=== PATIENT | female | born 1950 | race American Indian/Alaskan Native ===

== ENCOUNTER 2019-06-14 17:19 | Observation (INO) | payer MEDICARE ==
--- NOTE | 2019-06-14 17:24 | Emergency Department Report ---
Blank Doc - Documentation Documentation: 69-year-old female that presents with dizziness. This initial assessment/diagnostic orders/clinical plan/treatment(s) is/are subject to change based on patient's health status, clinical progression and re- assessment by fellow clinical providers in the ED. Further treatment and workup at subsequent clinical providers discretion. Patient/guardians urged not to elope from the ED as their condition may be serious if not clinically assessed and managed. Initial orders include: 1- Patient sent to MAIN ED for further evaluation and treatment 2- labs 3- EKG 4- CXR 5- O2 ordered
[2019-06-14 17:57] LABS: Basophils % (Auto) 0.3 % (0.0-1.8); Eosinophils % (Auto) 0.4 % (0.0-4.3); Hematocrit 38.7 % (30.3-42.9); Hemoglobin 12.5 gm/dl (10.1-14.3); Lymphocytes # (Auto) 1.4 K/mm3 (1.2-5.4); Lymphocytes % (Auto) 17.9 % (13.4-35.0); Mean Corpuscular HGB Conc 32 % (30-34); Mean Corpuscular Volume 82 fl (79-97); Monocytes # (Auto) 0.6 K/mm3 (0.0-0.8); Monocytes % (Auto) 7.6 % (0.0-7.3); Platelet Count 238 K/mm3 (140-440); Red Blood Count 4.73 M/mm3 (3.65-5.03); Red Cell Distribution Width 16.6 % (13.2-15.2)
--- NOTE | 2019-06-14 18:01 | XRay Report ---
CHEST 1 VIEW INDICATION / CLINICAL INFORMATION: Chest Pain. COMPARISON: 06/12/2014 chest radiograph FINDINGS: SUPPORT DEVICES: None. HEART / MEDIASTINUM: Normal heart size allowing for AP technique. LUNGS / PLEURA: No significant pulmonary or pleural abnormality. No pneumothorax. IMPRESSION: 1. No acute finding. Signer Name: Eleazar Irizarry MD Signed: 06/14/2019 5:56 PM Workstation Name: [id number]
[2019-06-14 18:12] LABS: Alanine Aminotransferase 10 units/L (7-56); Albumin 4.1 g/dL (3.9-5); BUN/Creatinine Ratio 30; Blood Urea Nitrogen 15 mg/dL (7-17); Calcium 9.3 mg/dL (8.4-10.2); Hemolysis Index 13
[2019-06-14 18:19] LABS: INR 1.12 (0.87-1.13)
[2019-06-14 18:20] LABS: Partial Thromboplastin Time 28.1 Sec. (24.2-36.6)
[2019-06-14] MEDS ORDERED: MECLIZINE 25 MG TAB PO ONE (18:56)
[2019-06-14] MEDS ORDERED: ONDANSETRON 4 MG ODT TAB PO ONE (18:56)
--- NOTE | 2019-06-14 19:01 | Emergency Department Report ---
HPI - General Chief Complaint: Dizziness Time Seen by Provider: 06/14/19 17:22 - HPI HPI: Room 2 The patient is 69-year-old female presented with a chief complaint of dizziness. The patient states this morning after waking up she began to feel dizzy and experienced nausea vomiting. Patient states she felt weak diffusely. Patient denies headache or pain of any type. Patient denies any preceding trauma. Patient denies history of fever. When asked how she is feeling currently the patient replies she feels lightheaded Location: [See above] Duration: [See above] Quality: [See above] Severity: [See above] Timing: [See above] Context: [See above] Modifying factors: [See above] Associated signs and symptoms: [see above] ED Past Medical Hx - Past Medical History Previous Medical History?: Yes Hx Hypertension: Yes Hx Diabetes: Yes - Surgical History Past Surgical History?: No Additional Surgical History: Hysterectomy - Family History Family history: no significant - Social History Smoking Status: Former Smoker (none x 5 years) Substance Use Type: None (denies illicit drug use), Alcohol (occasional) ED Review of Systems ROS: Stated complaint: DIZZY Other details as noted in HPI Constitutional: weakness Eyes: denies: eye pain ENT: denies: throat pain Respiratory: no symptoms reported Cardiovascular: denies: chest pain Endocrine: no symptoms reported Gastrointestinal: nausea, vomiting. denies: abdominal pain Genitourinary: denies: dysuria Musculoskeletal: denies: back pain Neurological: vertigo. denies: headache Physical Exam - Physical Exam Vital Signs: Vital Signs 06/14/19 06/14/19 17:23 18:12 Temperature 97.4 F L 97.6 F Pulse Rate 70 68 Respiratory 18 18 Rate Blood Pressure 178/78 Blood Pressure 172/78 [Right] O2 Sat by Pulse 88 98 Oximetry Physical Exam: GENERAL: The patient is well-developed well-nourished female lying on stretcher not appearing to be in acute distress. [] HEENT: Normocephalic. Atraumatic. Extraocular motions are intact. Patient has moist mucous membranes. No nystagmus noted NECK: Supple. No meningitic signs are noted. Trachea midline CHEST/LUNGS: Clear to auscultation. There is no respiratory distress noted. HEART/CARDIOVASCULAR: Regular. There is no tachycardia. There is no gallop rub or murmur. ABDOMEN: Abdomen is soft, nontender. Patient has normal bowel sounds. There is no abdominal distention. SKIN: There is no rash. There is no edema. There is no diaphoresis. NEURO: The patient is awake, alert, and oriented. The patient is cooperative. The patient has no focal neurologic deficits. The patient has normal speech. Cranial nerves II through XII grossly intact MUSCULOSKELETAL: There is no evidence of acute injury. ED Course Vital Signs 06/14/19 06/14/19 17:23 18:12 Temperature 97.4 F L 97.6 F Pulse Rate 70 68 Respiratory 18 18 Rate Blood Pressure 178/78 Blood Pressure 172/78 [Right] O2 Sat by Pulse 88 98 Oximetry - Reevaluation(s) Reevaluation #1: 06/14/19 21:03 Patient states she still feels dizzy and is unable to stand unassisted. ED Medical Decision Making - Lab Data Result diagrams: 06/14/19 17:36 06/14/19 17:36 Laboratory Tests 06/14/19 06/14/19 06/14/19 17:31 17:36 17:36 WBC 8.1 RBC 4.73 Hgb 12.5 Hct 38.7 MCV 82 MCH 26 L MCHC 32 RDW 16.6 H Plt Count 238 Lymph % (Auto) 17.9 Bound[place] % (Auto) 7.6 H Eos % (Auto) 0.4 Baso % (Auto) 0.3 Lymph # 1.4 Boundary # 0.6 Eos # 0.0 Baso # 0.0 Seg Neutrophils % 73.8 H Seg Neutrophils # 6.0 PT 14.3 INR 1.12 APTT 28.1 Sodium Potassium Chloride Carbon Dioxide Anion Gap BUN Creatinine Estimated GFR BUN/Creatinine Ratio Glucose POC Glucose 137 H Calcium Total Bilirubin AST ALT Alkaline Phosphatase Troponin T Total Protein Albumin Albumin/Globulin Ratio 06/14/19 17:36 WBC RBC Hgb Hct MCV MCH MCHC RDW Plt Count Lymph % (Auto) Boundary % (Auto) Eos % (Auto) Baso % (Auto) Lymph # Boundary # Eos # Baso # Seg Neutrophils % Seg Neutrophils # PT INR APTT Sodium 137 Potassium 3.5 L Chloride 100.2 Carbon Dioxide 25 Anion Gap 15 BUN 15 Creatinine 0.5 L Estimated GFR > 60 BUN/Creatinine Ratio 30 Glucose 145 H POC Glucose Calcium 9.3 Total Bilirubin 0.30 AST 17 ALT 10 Alkaline Phosphatase 71 Troponin T < 0.010 Total Protein 7.9 Albumin 4.1 Albumin/Globulin Ratio 1.1 - EKG Data -: EKG Interpreted by Me EKG shows normal: sinus rhythm Rate: normal - EKG Data When compared to previous EKG there are: previous EKG unavailable Interpretation: other (no ischemic changes seen) - Radiology Data Radiology results: report reviewed (chest x-ray, CT head), image reviewed (chest x-ray, CT head) interpreted by me: Chest x-ray-no focal infiltrates, no pneumothorax Chest x-ray (read by radiologist)-no acute finding [facility] [address] [place] [address] Cat Scan Report Signed Patient: KRAIG MEDINA MR#: [id number] : 1950 Acct:[id number] Age/Sex: 69 / F ADM Date: 06/14/19 Loc: ED Attending Dr: Ordering Physician: EMY SCHWARTZ MD Date of Service: 06/14/19 Procedure(s): CT head/brain wo con Accession Number(s): [id number] cc: EMY SCHWARTZ MD CT head/brain wo con INDICATION / CLINICAL INFORMATION: 69 years Female; dizziness nausea vomiting. TECHNIQUE: Routine CT head without contrast. All CT scans at this location are performed using CT dose reduction for ALARA by means of automated exposure control. Some motion artifact COMPARISON: MRI - 08/12/2011 FINDINGS: BRAIN / INTRACRANIAL CONTENTS: There may be a small arachnoid cyst along the intraparietal sulcus anteriorly on the right, which should be of no clinical significance. No acute hemorrhage, mass effect, midline shift, hydrocephalus, or acute, large territorial infarct. Mild cerebral atrophy. There are moderate areas of decreased attenuation in the white matter of the cerebral hemispheres. These are nonspecific findings and may be related to microangiopathy (hypertension, diabetes, atherosclerosis), given the patient's age. It might be difficult to evaluate for small areas of ischemia without diffusion imaging by MRI. CRANIOCERVICAL JUNCTION: No significant abnormality. ORBITS: No significant abnormality of visualized orbits. SINUSES / MASTOIDS: No significant abnormality the visualized paranasal sinuses or mastoid air cells. ADDITIONAL FINDINGS: Atherosclerotic disease is seen in the anterior circulation. IMPRESSION: 1. No focal intra-axial mass, hemorrhage, hydrocephalus, or acute, large territorial infarct. Signer Name: Fabiano Melvin MD, III Signed: 06/14/2019 7:59 PM Workstation Name: [id number] Transcribed By: HR Dictated By: Fabiano Melvin MD Electronically Authenticated By: Fabiano Melvin MD Signed Date/Time: 06/14/191958 DD/ 54 TD/TT: - Differential Diagnosis peripheral vertigo, central vertigo Critical care attestation.: If time is entered above; I have spent that time in minutes in the direct care of this critically ill patient, excluding procedure time. ED Disposition Clinical Impression: Vertigo Disposition: DC-[id number] OP ADMIT IP TO THIS HOSP Is pt being admited?: Yes Does the pt Need Aspirin: Yes Condition: Fair Time of Disposition: 21:03 (hospitalist paged (Dr Cabral))
--- NOTE | 2019-06-14 20:03 | Cat Scan Report ---
CT head/brain wo con INDICATION / CLINICAL INFORMATION: 69 years Female; dizziness nausea vomiting. TECHNIQUE: Routine CT head without contrast. All CT scans at this location are performed using CT dos e reduction for ALARA by means of automated exposure control. Some motion artifact COMPARISON: MRI - 08/12/2011 FINDINGS: BRAIN / INTRACRANIAL CONTENTS: There may be a small arachnoid cyst along the intraparietal sulcus ant eriorly on the right, which should be of no clinical significance. No acute hemorrhage, mass effect, midline shift, hydrocephalus, or acute, large territorial infarct. Mild cerebral atrophy. There are moderate areas of decreased attenuation in the white matter of the cerebral hemispheres. Th [place]ent[place] are nonspecific findings and may be related to microangiopathy (hypertension, diabetes, atheroscl erosis), given the patient's age. It might be difficult to evaluate for small areas of ischemia witho ut diffusion imaging by MRI. CRANIOCERVICAL JUNCTION: No significant abnormality. ORBITS: No significant abnormality of visualized orbits. SINUSES / MASTOIDS: No significant abnormality the visualized paranasal sinuses or mastoid air cells. ADDITIONAL FINDINGS: Atherosclerotic disease is seen in the anterior circulation. IMPRESSION: 1. No focal intra-axial mass, hemorrhage, hydrocephalus, or acute, large territorial infarct. Signer Name: Fabiano Melvin MD, III Signed: 06/14/2019 7:59 PM Workstation Name: [id number]
[2019-06-14] MEDS ORDERED: LORazepam 1 MG TAB PO ONE (20:09)
[2019-06-14] MEDS ORDERED: LORazepam 1 MG TAB ONE (20:13)
[2019-06-14] MEDS ORDERED: ASPIRIN 325 MG TAB PO ONE (21:03)
[2019-06-14] MEDS ORDERED: ACETAMINOPHEN 325 MG TAB PO PRN (22:50)
[2019-06-14] MEDS ORDERED: DEXTROSE 50% IN WATER (25GM) 50 ML SYRINGE IV PRN (22:50)
[2019-06-14] MEDS ORDERED: ONDANSETRON 4 MG/2 ML INJ IV PRN ×2 (22:50→23:48)
--- NOTE | 2019-06-14 22:52 | History and Physical Report ---
History of Present Illness Date of examination: 06/14/19 History of present illness: 69-year-old woman with a history of hypertension, diabetes mellitus comes to the emergency room with complaints of nausea vomiting,dizziness and difficulty ambulating. Dizzines does not change with position, no hearing difficulties, she had URI 2 weeks ago. Denies motor or sensory symptoms Review Of Systems: Constitutional: no weight loss, fever, chills Ears, eyes, nose, mouth and throat: no nasal congestion, no nasal discharge, no sinus pressure, blurry vision, diplopia Neck: No neck pain or rigidity. Cardiovascular: No palpitations, chest pain Respiratory: No shortness of breath, cough Gastrointestinal: No hematochezia Genitourinary : no dysuria, frequency Musculoskeletal: no muscle ache , joint pain Integumentary: no rash, no pruritis Neurological: no parathesias, focal weakness Endocrine: no cold or heat intolerance, no polyuria or polydipsia Hematologic/Lymphatic: no easy bruising, no easy bleeding, no gland swelling Allergic/Immunologic: no urticaria, no angioedema. PAST MEDICAL HISTORY: hypertension, diabetes mellitus PAST SURGICAL HISTORY: Hysterectomy SOCIAL HISTORY:Social alcohol, Denies tobacco, drugs FAMILY HISTORY: Hypertension Medications and Allergies Allergies Allergy/AdvReac Type Severity Reaction Status Date / Time No Known Allergies Allergy Unverified 02/12/14 08:54 Home Medications Medication Instructions Recorded Confirmed Last Taken Type Aspirin [Adult Aspirin] 81 mg PO DAILY 06/14/19 06/14/19 Unknown History AtorvaSTATin [Lipitor] 20 mg PO QHS 06/14/19 06/14/19 Unknown History Fenofibrate Nanocrystallized 48 mg PO DAILY 06/14/19 06/14/19 Unknown History [Fenofibrate] Lisinopril [Zestril TAB] 10 mg PO BID 06/14/19 06/14/19 Unknown History Spironolactone [Aldactone] 25 mg PO QDAY 06/14/19 06/14/19 Unknown History carvediloL [Coreg] 3.125 mg PO DAILY 06/14/19 06/14/19 Unknown History Exam - Physical Exam Narrative exam: Gen. appearance: Patient lying in bed, no apparent distress HEENT: Normocephalic, atraumatic, pupils equally round and reactive to light, extraocular movement intact, and no sclericterus,. No JVD or thyromegaly or nodule,neck supple, no carotid bruit ,mucous membranes moist, no exudate or erythema Heart: S1, S2, regular rate and rhythm Lungs: Clear bilaterally, breathing comfortable Abdomen: Positive bowel sounds, nontender, nondistended, no organomegaly Extremity: no edema, cyanosis, clubbing Skin: No rash, nodules, warm, dry Neuro: speech is fluent, moves extremities, sensory intact - Constitutional Vitals: Temp Pulse Resp BP Pulse Ox 97.6 F 70 15 166/59 100 06/14/19 18:12 06/14/19 21:30 06/14/19 21:30 06/14/19 21:30 06/14/19 21:30 Results - Labs CBC & Chem 7: 06/14/19 17:36 06/14/19 17:36 Labs: Abnormal lab results 06/14/19 06/14/19 06/14/19 Range/Units 17:31 17:36 17:36 MCH 26 L (28-32) pg RDW 16.6 H (13.2-15.2) % [place] % (Auto) 7.6 H (0.0-7.3) % Seg Neutrophils % 73.8 H (40.0-70.0) % Potassium 3.5 L (3.6-5.0) mmol/L Creatinine 0.5 L (0.7-1.2) mg/dL Glucose 145 H (65-100) mg/dL POC Glucose 137 H (70-105) - Imaging and Cardiology Chest x-ray: report reviewed CT Scan - head: report reviewed Assessment and Plan assessment Dizziness, vertigo, labyrinthitis versus other start meclizine,fluid, consult neurology Hypertension, uncontrolled IV hydralazine for blood pressure control continue outpatient medicastions Diabetes Check fingersticks and start insulin sliding scale Restart outpatient medication Replete potassium DVT prophalaxis
[2019-06-14] MEDS ORDERED: hydrALAZINE 20 MG/1 ML INJ IV PRN ×2 (23:35→23:47)
[2019-06-14] MEDS ORDERED: POTASSIUM CHLORIDE ER 20 MEQ TAB PO ONE (23:35)
[2019-06-14] MEDS ORDERED: SODIUM CHLORIDE 0.45% 1000 ML 1,000 ML IV SCH (23:45)
[2019-06-15] MEDS: MECLIZINE 25 MG TAB PO SCH ×3 (01:08→14:27)
[2019-06-15 05:53] LABS: Basophils % (Auto) 0.5 % (0.0-1.8); Eosinophils % (Auto) 0.5 % (0.0-4.3); Hematocrit 38.2 % (30.3-42.9); Hemoglobin 12.1 gm/dl (10.1-14.3); Lymphocytes # (Auto) 1.2 K/mm3 (1.2-5.4); Lymphocytes % (Auto) 15.7 % (13.4-35.0); Mean Corpuscular HGB Conc 32 % (30-34); Mean Corpuscular Volume 83 fl (79-97); Monocytes # (Auto) 0.9 K/mm3 (0.0-0.8); Platelet Count 202 K/mm3 (140-440); Red Blood Count 4.59 M/mm3 (3.65-5.03); Red Cell Distribution Width 16.9 % (13.2-15.2)
[2019-06-15 06:04] LABS: BUN/Creatinine Ratio 21; Blood Urea Nitrogen 15 mg/dL (7-17); Hemolysis Index 17
[2019-06-15] MEDS: INSULIN LISPRO 100 UNIT/ML SUB-Q SCH ×2 (08:30→12:00)
[2019-06-15 09:39] VITALS: BP 138/61
[2019-06-15] MEDS ORDERED: ASPIRIN EC 81 MG TAB PO SCH (10:00)
[2019-06-15] MEDS ORDERED: LISINOPRIL 10 MG TAB PO SCH (10:00)
[2019-06-15] MEDS ORDERED: ENOXAPARIN 30 MG/0.3 ML INJ SUB-Q SCH (10:00)
[2019-06-15] MEDS ORDERED: FENOFIBRATE 48 MG TAB PO SCH (10:00)
[2019-06-15] MEDS ORDERED: ENOXAPARIN 40 MG/0.4 ML INJ SUB-Q SCH (10:00)
[2019-06-15] MEDS ORDERED: SPIRONOLACTONE 25 MG TAB PO SCH (10:00)
[2019-06-15] MEDS ORDERED: carvediloL 3.125 MG TAB PO SCH (10:00)
--- NOTE | 2019-06-15 10:48 | Consultation ---
History of Present Illness Consult date: 06/15/19 Reason for Consult: dizziness History of present illness: 69-year-old woman with a history of hypertension, diabetes mellitus comes to the emergency room with complaints of nausea vomiting,dizziness and difficulty ambulating. Dizzines does not change with position, no hearing difficulties, she had URI 2 weeks ago. Denies motor or sensory symptoms According to pt. she feel better today dizziness is more like a feeling wobbly with tendency to fall on walking , she denied vertigo in sitting position or moving head in right or left position , denied nausea or diplopia denied focal weakness or swallowing difficulty . Ct brain is unremarkable she is with hx of HTN,DM,HLP,CVA over 10 ys ago taking ASA 81 mg daily , quite smoking > 5 ys ago she does not drink. Past History Past Medical History: diabetes, hypertension, hyperlipidemia, stroke Medications and Allergies Allergies Allergy/AdvReac Type Severity Reaction Status Date / Time No Known Allergies Allergy Unverified 02/12/14 08:54 Home Medications Medication Instructions Recorded Confirmed Last Taken Type Aspirin [Adult Aspirin] 81 mg PO DAILY 06/14/19 06/14/19 Unknown History AtorvaSTATin [Lipitor] 20 mg PO QHS 06/14/19 06/14/19 Unknown History Fenofibrate Nanocrystallized 48 mg PO DAILY 06/14/19 06/14/19 Unknown History [Fenofibrate] Lisinopril [Zestril TAB] 10 mg PO BID 06/14/19 06/14/19 Unknown History Spironolactone [Aldactone] 25 mg PO QDAY 06/14/19 06/14/19 Unknown History carvediloL [Coreg] 3.125 mg PO DAILY 06/14/19 06/14/19 Unknown History Active Meds: Active Medications Acetaminophen (Tylenol) 650 mg PO Q4H PRN PRN Reason: Pain MILD(1-3)/Fever >100.5/[place] Aspirin (Halfprin Ec) 81 mg PO DAILY [facility] Last Admin: 06/15/19 09:38 Dose: 81 mg Documented by: Atorvastatin Calcium (Lipitor) 20 mg PO QHS [facility] Carvedilol (Coreg) 3.125 mg PO DAILY [facility] Last Admin: 06/15/19 09:40 Dose: 3.125 mg Documented by: Dextrose (D50w (25gm) Syringe) 50 ml IV Q30MIN PRN; Protocol PRN Reason: Hypoglycemia Enoxaparin Sodium (Enoxaparin) 40 mg SUB-Q QDAY@1000 [facility] Last Admin: 06/15/19 09:37 Dose: 40 mg Documented by: Fenofibrate (Tricor) 48 mg PO DAILY [facility] Last Admin: 06/15/19 09:38 Dose: 48 mg Documented by: Hydralazine HCl (Apresoline) 5 mg IV Q6H PRN PRN Reason: Hypertension Sodium Chloride (Nacl 0.45% 1000 Ml) 1,000 mls @ 50 mls/hr IV DIRECT [facility] Last Admin: 06/15/19 01:07 Dose: 50 mls/hr Documented by: Insulin Human Lispro (Humalog) 0 unit SUB-Q ACHS [facility]; Protocol Last Admin: 06/15/19 08:30 Dose: Not Given Documented by: Lisinopril (Zestril) 10 mg PO BID [facility] Last Admin: 06/15/19 09:40 Dose: 10 mg Documented by: Meclizine HCl (Antivert) 25 mg PO Q6H [facility] Last Admin: 06/15/19 08:43 Dose: 25 mg Documented by: Ondansetron HCl (Zofran) 4 mg IV Q4H PRN PRN Reason: Nausea And Vomiting Sodium Chloride (Sodium Chloride Flush Syringe 10 Ml) 10 ml IV BID [facility] Last Admin: 06/15/19 09:40 Dose: 10 ml Documented by: Sodium Chloride (Sodium Chloride Flush Syringe 10 Ml) 10 ml IV PRN PRN PRN Reason: LINE FLUSH Spironolactone (Aldactone) 25 mg PO QDAY [facility] Last Admin: 06/15/19 09:39 Dose: 25 mg Documented by: Review of Systems All systems: negative (she is with URI X 2 weeks with cough no fever) Ears, nose, mouth and throat: sore throat, vertigo Breasts: deferred Respiratory: cough, congestion Neurological: balance difficulties Physical Examination - Vital Signs Vital Signs: Vital Signs Temp Pulse Resp BP Pulse Ox 97.4 F L 70 18 178/78 88 06/14/19 17:23 06/14/19 17:23 06/14/19 17:23 06/14/19 17:23 06/14/19 17:23 - Constitutional General appearance: comfortable - EENT EENT: Present: PERRL - Respiratory Respiratory: Present: chest non-tender, rhonchi, wheezing - Cardiovascular Cardiovascular: Present: regular rate, normal S1, normal S2 Extremities: Present: no peripheral edema bilatateraly, no clubbing, cyanosis - Gastrointestinal Gastrointestinal: Present: normoactive bowel sounds - Integumentary Integumentary: Present: normal - Neurologic Cranial nerve examination: PERRL, EOMI, facial droop (slight right sided nystagmus horizintal. ), other (slight right lateral nystagmus , and left facial droop ) Speech examination: intact Sensorimotor examination: intact Detailed motor examination: grossly full strength in Detailed sensory examination: intact Cerebellar examination: dysmetria, other (dysmetria mild noted L>R ) - Psychiatric Psychiatric: Present: mood/affect appropriate - Level of Consciousness 1a. Level of Consciousness: alert/keenly responsive - LOC Questions 1b. LOC Questions: answers both correctly - LOC Command 1c. LOC Commands: performs tasks correctly - Best Gaze 2. Best Gaze: normal - Visual 3. Visual: no visual loss - Facial Palsy 4. Facial Palsy: minor paralysis - Motor Arm 5a. Motor Arm Left: no drift 5b. Motor Arm Right: no drift - Motor Leg 6a. Motor Leg Left: no drift 6b. Motor Leg Right: no drift - Limb Ataxia 7. Limb Ataxia: absent - Sensory 8. Sensory: normal - Best Language 9. Best Language: no aphasia - Dysarthria 10. Dysarthria: normal - Extinction and Inattention 11. Extinction/Inattention: no abnormality - Scoring Total Score: 1 Stroke Severity: Minor Stroke Results - Laboratory Findings CBC and BMP: 06/15/19 05:11 06/15/19 05:11 Abnormal Lab Findings: Abnormal Labs 06/14/19 06/14/19 06/14/19 17:31 17:36 17:36 MCH 26 L RDW 16.6 H [place] % (Auto) 7.6 H [place] # Seg Neutrophils % 73.8 H Potassium 3.5 L Chloride Creatinine 0.5 L Glucose 145 H POC Glucose 137 H 06/15/19 06/15/19 06/15/19 05:11 05:11 08:02 MCH 26 L RDW 16.9 H [place] % (Auto) 12.0 H [place] # 0.9 H Seg Neutrophils % 71.3 H Potassium Chloride 96.1 L Creatinine Glucose 128 H POC Glucose 108 H Assessment and Plan Impression 1- This is 69 ys old female with hx of HTN,DM,HLP started to have sudden onset of dizziness she felt wabbly with tendency to fall this is produced only in standing when she tring to walk , denied associated vertigo but describe mild n ausea , Ct brain is unremarkable, she is with hx of HTN HLP and DM exam is remarkable for mild right horizontal nystagmus ,left facial droop with the possibility of cerebellar infarct can not be excluded 2- Hx of remote CVA X 10 ys ago 3- URI with cough PLAN 1- keep ASA 81 mg 2- MRI brain 3- carotid doppler 4- Echo cardiogram 5- PT/ST to see 6- fasting lipid profil 7- Keep lipitor 20 mg daily 8- A1c 9- DVT precaution 10- manage URI will follow along
--- NOTE | 2019-06-15 15:27 | Discharge Summary ---
Providers - Providers Date of Admission: 06/14/19 22:50 Date of discharge: 06/15/19 Attending physician: ADITYA BRITO 06/14/19 22:50 Consult to Physician [CONS] Routine Comment: noted/ moreno Consulting Provider: EDDI JAY Physician Instructions: Reason For Exam: dizziness Primary care physician: Hernando CASTILLO MD Hospitalization Condition: Stable Hospital course: Patient is a 69 woman with a history of hypertension, DM type 2, dyslipidemia and prior CVA who presents to ER with n/v/dizziness which resolved, she ate eggs and lunch without vomiting Dizziness, most likely vertigo, patient refused MRI brain, too claustrophobia even with medications which she tried in the past, so she declined: Extensive Counseling done, she needs open MRI brain with and without contrast, she needs to get the order from her PCP Dr. Huerta (whom I called and spoke with), which she voice understanding and agreement. URI: she needs to go see her PCP, will give her cough medications Disposition: DC TO HOME OR SELFCARE Time spent for discharge: 34 minutes Core Measure Documentation - Palliative Care Palliative Care/ Comfort Measures: Not Applicable - Core Measures Any of the following diagnoses?: none - VTE Discharge Requirements Deep Vein Thrombosis/Pulmonary Embolism Present on Admission: No Has pt received <5 days of overlap therapy or INR<2.0: No Anticoagulant overlap therapy prescribed at discharge: No Contraindication No Overlap Therapy order at DC: Not Indicated Exam - Physical Exam Narrative exam: Gen: WDWN, NAD, Awake, Alert, Orientated HEENT: NCAT, EOMI, PERRL, OP Clear Neck: supple, no adenopathy, no thyromegaly, no JVD CVS/Heart: RRR, normal S1S2, pulses present bilaterally Chest/Lungs: CTA B, Symmetrical chest expansion, good air entry bilaterally GI/Abdomen: soft, NTND, good bowel sounds, no guarding or rebound /Bladder: no suprapubic tenderness, no CVA or paraspinal tenderness Extermity/Skin: no c/c/e, no obvious rash MSK: FROM x 4 Neuro: CN 2-12 grossly intact, facial asymmetry, no new focal deficits Psych: calm - Constitutional Vitals: Temp Pulse Resp BP Pulse Ox 98.9 F 65 18 138/61 98 06/15/19 07:51 06/15/19 09:40 06/15/19 07:51 06/15/19 09:40 06/15/19 09:14 Plan Activity: no driving until cleared by PCP, other (no strenous activity until cleared by PCP) Diet: low salt, diabetic Special Instructions: record daily BP diary, record blood sugar diary Additional Instructions: Ask PCP for Open MRI Follow up with: Augie CASTILLO MD [Primary Care Provider] - 7 Days Prescriptions: Meclizine [Antivert] 25 mg PO Q6H PRN #16 tablet PRN Reason: Vertigo guaiFENesin [Robitussin] 200 mg PO Q4HR PRN 5 Days #1 bottle PRN Reason: Cough
--- NOTE | 2019-06-15 15:28 | Vascular Lab Report ---
BILATERAL CAROTID DOPPLER ULTRASOUND INDICATION : dizziness TECHNIQUE: Grayscale and color Doppler imaging performed through the neck. COMPARISON: None FINDINGS: Right: There is mild partially calcified plaques are noted in the bulb. Peak systolic velocity in t he CCA is 60 cm/s with end-diastolic velocity of 12 cm/s. Peak systolic velocity in the proximal ICA is 88 cm/s with end-diastolic velocity of 22 cm/s. ICA to CCA ratio is less than 2. There is antegrad e flow in the ECA and the vertebral artery. Left: There is mild partially calcified plaques are noted in the bulb. Peak systolic velocity in the CCA is 85 cm/s with end-diastolic velocity of 19 cm/s. Peak systolic velocity in the proximal ICA is 93 cm/s with end-diastolic velocity of 23 cm/s. ICA to CCA ratio is less than 2. There is antegrade flow in the ECA and the vertebral artery. IMPRESSION: No hemodynamically significant stenosis by NASCET criteria. There is less than 50% lumina l narrowing throughout both carotid systems. Signer Name: Gage Rahman Jr, MD Signed: 06/15/2019 3:23 PM Workstation Name: [id number]
== END 2019-06-15 19:46 | disposition home or self-care (01) ==
LOC: ED 17:19 → 2B-ACE 22:50
PROVIDERS: ADMIT Internal Medicine; ATTEND Internal Medicine
DX: R42 Dizziness and giddiness (principal); I10 Essential (primary) hypertension; E11.9 Type 2 diabetes mellitus without complications; E78.5 Hyperlipidemia, unspecified; J06.9 Acute upper respiratory infection, unspecified; Z86.73 Personal history of transient ischemic attack (TIA), and cerebral infarction without residual deficits; Z87.891 Personal history of nicotine dependence; Z90.710 Acquired absence of both cervix and uterus; Z79.82 Long term (current) use of aspirin; Z79.899 Other long term (current) drug therapy
CPT/HCPCS: 36415; 70450; 71045; 80048; 80053; 82962; 84484; 85025; 85610; 85730; 93005; 93010; 93306; 93880; 94760; 96361; 96372; 96374; 99284; G0378; J1650; J2405; J7030; Q0162